=== PATIENT | male | born 1970 | race African-American/Black ===

== ENCOUNTER 2022-05-15 14:28 | Emergency (ER) | payer OTHER, SELFPAY ==
[2022-05-15 14:44] VITALS: BP 179/81; PULSE 55; RESP 16; TEMP 36.1; O2SAT 100; BMI 26.4
--- NOTE | 2022-05-15 15:26 | ED.EYEPROB ---
HPI - Eye Problem <Johnny Sellers PA-C - Last Filed: 05/15/22 16:00> General Chief complaint: Eye Problems Stated complaint: lt eye red , dog nip lt heel Time Seen by Provider: 05/15/22 14:34 History of Present Illness HPI Narrative: Patient is 51-year-old male who presents to the emergency room today with complaint left eye pain that started about 11:00 a.m. this morning. Patient states when he woke up he noticed a feeling of pressure behind his left eye. Pain was about an 8 this morning and is about a 5 now. Denies changes in vision denies drainage from in admits to having LASIK surgery done about 10 years ago. Also states he has been diagnosed with to 1 of his eyes but does not know which 1 it is. Related Data Previous Rx's Medication Instructions Recorded erythromycin 5 mg/gram (0.5 %) eye 1 cm EYE-LEFT BID #3.5 grams 05/15/22 ointment Review of Systems <Johnny Sellers PA-C - Last Filed: 05/15/22 16:00> Review of Systems Narrative: R.O.S.: General: No fever, chills or fatigue. Cardiovascular: No chest pain or palpitations Respiratory: No S.O.B. HEENT: Left eye pain and redness. No congestion, ear pain, rhinorrhea, sore throat or tinnitus Gastrointestinal: No nausea or vomiting Skin: No rash or associated abnormalities Musculoskeletal: No pain in muscles or joints, no limitation of range of motion, no paresthesia or numbness. ?? Neurological: Awake, alert and in not apparent distress. No Headaches, changes in vision or other related neurological concerns. Exam <Johnny Sellers PA-C - Last Filed: 05/15/22 16:00> Narrative Exam Narrative: Physical Exam: ? General: normal appearance, well developed, well nourished, alert, and awake. Not in acute distress. ? Head: Normocephalic, no lesions. Chest: Lungs CTAB, no rales, rhonchi or wheezes. ?? Heart: RRR, no murmurs, rubs or gallops. Eyes: Left medial conjunctiva erythematous without drainage; visual acuity 2020 bilateral; intra-ocular pressure pressure right 14 left 19; PERRLA, EOM's full. ? Neuro: Physiological, no localizing findings, CN3-12 intact. ?? Extremities: Warm, well perfused, FROM, no deformities, no edema. ?? Skin: Normal, no rashes, no lesions noted. ?? PSYCHIATRIC: The mood is good, no blunted affect. Speech is clear. Thought process is linear, thought content is appropriate. The voice is without significant inflection. Gastrointestinal: Soft; NT; ND; Pos BS with Neg. rebound tenderness. No scars or major deformities noted on Visual Inspection. Initial Vital Signs Initial Vital Signs: Vital Signs Temperature 97 F L 05/15/22 14:44 Pulse Rate 55 L 05/15/22 14:44 Respiratory Rate 16 05/15/22 14:44 Blood Pressure 179/81 H 05/15/22 14:44 Pulse Oximetry 100 05/15/22 14:44 Oxygen Delivery Method 05/15/22 14:44 <Romel Malcolm DO - Last Filed: 05/15/22 17:28> Initial Vital Signs Initial Vital Signs: Vital Signs Temperature 97 F L 05/15/22 14:44 Pulse Rate 55 L 05/15/22 14:44 Respiratory Rate 16 05/15/22 14:44 Blood Pressure 179/81 H 05/15/22 14:44 Pulse Oximetry 100 05/15/22 14:44 Oxygen Delivery Method 05/15/22 14:44 Course <Johnny Sellers PA-C - Last Filed: 05/15/22 16:00> Orders Ordered: Discontinued Medications Fluorescein Sodium (Fluorescein 1 Mg Strip) 1 mg EYE-BOTH NOW ONE Stop: 05/15/22 15:13 Last Admin: 05/15/22 15:35 Dose: 1 mg Documented By: BRE Proparacaine HCl (Proparacaine 0.5% Ophth Rebecca) 1 drops EYE-LEFT NOW ONE Stop: 05/15/22 15:13 Last Admin: 05/15/22 15:36 Dose: 15 ml Documented By: BRE Vital Signs Vital signs: Vital Signs - 8 hr 05/15/22 14:44 05/15/22 15:58 Temperature 97 F L Pulse Rate 55 L 53 L Respiratory Rate 16 16 Blood Pressure 179/81 H 138/84 Pulse Oximetry 100 100 Oxygen Delivery Method Room Air Room Air <DO Oliver Patel Last Filed: 05/15/22 17:28> Orders Ordered: Discontinued Medications Fluorescein Sodium (Fluorescein 1 Mg Strip) 1 mg EYE-BOTH NOW ONE Stop: 05/15/22 15:13 Last Admin: 05/15/22 15:35 Dose: 1 mg Documented By: BRE Proparacaine HCl (Proparacaine 0.5% Ophth Rebecca) 1 drops EYE-LEFT NOW ONE Stop: 05/15/22 15:13 Last Admin: 05/15/22 15:36 Dose: 15 ml Documented By: SB Vital Signs Vital signs: Vital Signs - 8 hr 05/15/22 14:44 05/15/22 15:58 Temperature 97 F L Pulse Rate 55 L 53 L Respiratory Rate 16 16 Blood Pressure 179/81 H 138/84 Pulse Oximetry 100 100 Oxygen Delivery Method Room Air Room Air MDM - Eye Problem <Johnny Sellers PA-C - Last Filed: 05/15/22 16:00> MDM Narrative Medical decision making narrative: Patient is a pleasant male who presents to the emergency room today with complaint left eye pain and swelling this started about 11:00 a.m. this morning. Also has a minor complain of a dog bite to his left foot from about 3-4 days ago. Physical exam revealed erythema to the left bulbar conjunctiva mostly focused on the medial area. The eye has no drainage at this time. Discussed with Dr. Malcolm and we performed tonometer testing of the bilateral thighs and we did a with slower of testing of the left eye. Wood's lamp revealed a minor abrasion to the left medial bulbar conjunctiva. The erythromycin ointment was ordered printed and given to patient. [place] Discussed emergent eye concerns and advised patient to return should any emergent concerns arise. Patient agrees with plan Discharge Plan Departure Patient Disposition: Home Clinical Impression: Abrasion of conjunctiva, left Instructions: How to Use Eye Ointments and Gels Activity Restrictions/Additional Instructions: *You have been diagnosed with an abrasion of the conjunctiva of your left eye. I have ordered antibiotic ointments were used apply to the eye twice a day. He is to refrain from rubbing the eye or engaging in any activity that would allow of foreign body into the eye. [ ] *What to do: *Please continue to take your regular medications as directed. [ ] New medication prescriptions sent to your pharmacy: [ ] [x] New medication written as a paper prescription [ ] No new medications given *Please follow up with your primary care provider in 2-3 days, call for an appointment. Let them know you were seen in the Emergency Department and that we ask that you be seen in follow up. We will electronically transmit a record of today's note if your PCP is in our system *If you do not have a primary care provider please contact the [facility] Resource line at [phone]. They will ask some questions about your medical history and help get you set up with a doctor in the community. *Return to Emergency Department if you should have any new, worsening or concerning symptoms, such as [fever greater than 101 F, shaking chills, worsening pain, persistent vomiting or other bothersome symptoms] Prescriptions: New erythromycin 5 mg/gram (0.5 %) ointment 1 cm EYE-LEFT BID Qty: 3.5 0RF Referrals: ProviderMaryse [Primary Care Provider] - Visit Report Forms: Patient Portal/API <Romel Malcolm DO - Last Filed: 05/15/22 17:28> Cosign ED Attending Cosignature Attestation: Who was involved in the care of the patient. I did perform the intra-ocular pressures which are unremarkable. Fluorescein staining does show what appears to be a nasal aspect corneal abrasion. This does fit his presentation.
[2022-05-15] MEDS: FLUORESCEIN 1 MG STRIP EYE-BOTH (15:35)
[2022-05-15] MEDS: PROPARACAINE 0.5% OPHTH SOL 1 DROPS EYE-LEFT (15:36)
--- NOTE | 2022-05-15 15:43 | PC.NURSE ---
Pt reports Lasix surgery 10 years ago and a history of dry eyes.
[2022-05-15 15:58] VITALS: BP 138/84; PULSE 53; RESP 16; O2SAT 100
--- NOTE | 2022-05-15 17:27 | ED.EYEPROB ---
HPI - Eye Problem General Chief complaint: Eye Problems Stated complaint: lt eye red , dog nip lt heel Time Seen by Provider: 05/15/22 14:34 History of Present Illness HPI Narrative: Patient is a 51-year-old male who presents to the emergency room today with complaint of left eye pain that started about 11:00 a.m. this morning. Related Data Previous Rx's Medication Instructions Recorded erythromycin 5 mg/gram (0.5 %) eye 1 cm EYE-LEFT BID #3.5 grams 05/15/22 ointment Exam Initial Vital Signs Initial Vital Signs: Vital Signs Temperature 97 F L 05/15/22 14:44 Pulse Rate 55 L 05/15/22 14:44 Respiratory Rate 16 05/15/22 14:44 Blood Pressure 179/81 H 05/15/22 14:44 Pulse Oximetry 100 05/15/22 14:44 Oxygen Delivery Method 05/15/22 14:44 Course Orders Ordered: Discontinued Medications Fluorescein Sodium (Fluorescein 1 Mg Strip) 1 mg EYE-BOTH NOW ONE Stop: 05/15/22 15:13 Last Admin: 05/15/22 15:35 Dose: 1 mg Documented By: BRE Proparacaine HCl (Proparacaine 0.5% Ophth Rebecca) 1 drops EYE-LEFT NOW ONE Stop: 05/15/22 15:13 Last Admin: 05/15/22 15:36 Dose: 15 ml Documented By: BRE Vital Signs Vital signs: Vital Signs - 8 hr 05/15/22 14:44 05/15/22 15:58 Temperature 97 F L Pulse Rate 55 L 53 L Respiratory Rate 16 16 Blood Pressure 179/81 H 138/84 Pulse Oximetry 100 100 Oxygen Delivery Method Room Air Room Air Discharge Plan Departure Patient Disposition: Home Clinical Impression: Abrasion of conjunctiva, left Instructions: How to Use Eye Ointments and Gels Activity Restrictions/Additional Instructions: *You have been diagnosed with an abrasion of the conjunctiva of your left eye. I have ordered antibiotic ointments were used apply to the eye twice a day. He is to refrain from rubbing the eye or engaging in any activity that would allow of foreign body into the eye. [ ] *What to do: *Please continue to take your regular medications as directed. [ ] New medication prescriptions sent to your pharmacy: [ ] [x] New medication written as a paper prescription [ ] No new medications given *Please follow up with your primary care provider in 2-3 days, call for an appointment. Let them know you were seen in the Emergency Department and that we ask that you be seen in follow up. We will electronically transmit a record of today's note if your PCP is in our system *If you do not have a primary care provider please contact the [facility] Resource line at [phone]. They will ask some questions about your medical history and help get you set up with a doctor in the community. *Return to Emergency Department if you should have any new, worsening or concerning symptoms, such as [fever greater than 101 F, shaking chills, worsening pain, persistent vomiting or other bothersome symptoms] Prescriptions: New erythromycin 5 mg/gram (0.5 %) ointment 1 cm EYE-LEFT BID Qty: 3.5 0RF Referrals: ProviderMaryse [Primary Care Provider] - Visit Report Forms: Patient Portal/API
== END 2022-05-15 16:01 | disposition home or self-care (01) ==
PROVIDERS: Emergency Provider Physician Assistant
DX: S05.02XA Injury of conjunctiva and corneal abrasion without foreign body, left eye, initial encounter (principal); S91.352A Open bite, left foot, initial encounter; W54.0XXA Bitten by dog, initial encounter
CPT/HCPCS: 99282

== ENCOUNTER → 2024-01-14 08:51 | Outpatient (CLI) | payer OTHER, SELFPAY ==
--- NOTE | 2024-01-14 08:53 | DI.MRI.S_ITS ---
PROCEDURE: MR LUMBAR SPINE WO CON INDICATIONS: RADICULOPATHY, LUMBAR REGION TECHNIQUE: Noncontrast sagittal T1 spin echo and T2 fast echo, sagittal STIR, and T2 fast spin echo through the lumbar spine. In cases with scoliosis, additional coronal T2 fast spin echo may be performed. COMPARISON: None. FINDINGS: Image quality: Excellent. Alignment and Curvature: There is normal bony alignment. Bone Marrow: Marrow is of normal overall signal. No acute vertebral body compression fractures. Spinal Cord: Conus medullaris terminates at the L1 level. Visualized cord demonstrates normal signal and size. Paraspinous Soft Tissues: No paravertebral masses. T12-L1: Normal appearance. L1-L2: Normal appearance. L2-L3: No disc desiccation or height loss. Mild bilateral foraminal stenosis. L3-L4: No disc desiccation or height loss. Mild bilateral foraminal stenosis. L4-L5: No disc desiccation or height loss. Mild left and moderate right foraminal stenosis. Mild facet and ligamentum flavum hypertrophy. L5-S1: Normal appearance. IMPRESSION: 1. There is good preservation of disc height and signal throughout the lumbar spine. 2. There is mild facet and ligamentum flavum hypertrophy at L4-5. No other facet sclerosis throughout the lumbar spine. 3. Moderate right foraminal stenosis at L4-5 and mild foraminal stenosis at L3-4 and L2-3. 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 Dictated by: Jessie Tello M.D. on 01/16/2024 at 9:10 Approved by: Jessie Tello M.D. on 01/16/2024 at 10:10
== END ==
LOC: MRI 08:52
PROVIDERS: Referring Provider Physician Assistant; Visit Provider Physician Assistant
DX: M47.26 Other spondylosis with radiculopathy, lumbar region (principal); M48.061 Spinal stenosis, lumbar region without neurogenic claudication
CPT/HCPCS: 72148